=== PATIENT | male | born 1950 | race Caucasian/White ===

== ENCOUNTER → 2017-02-10 | Outpatient (CLI) | payer BC ==
--- NOTE | 2017-02-11 05:34 | HKNOTE ---
DATE OF SERVICE: 02/10/2017 MAIN COMPLAINT: Pain in the right knee. 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 He has been extremely pleased with the results of the surgery. He developed some pain in the knee about a month ago. There has not b een any history of recent infection. The patient is extremely active and he rides his bicycle [employer] 15 miles at a time possibly several times a week. He also works out in a gym several times a week. The patient underwent a left total hip replacement which was performed by me in 2006. He has absolutely no problems with the hip. He has not had any fever. His pain is aggravated by walking. He does not get any rest pain. He baez s been taking Aleve for the pain, which does help. Resting also gives him a great deal of relief. He has no numbness or tingling in the leg. He can walk 1 or 2 miles at a time without stopping. He does not use a walking aid. He does not limp. His leg lengths feel equal. He does not have a go e lift. He can clip his toenails and tie his shoelaces. SPORTING ACTIVITIES: Cycling. PAST ORTHOPEDIC HISTORY: Right knee replacement in 2007. Left hip replacement in 2006. PRIOR CORTISONE INTAKE: Topical only. ALCOHOL INTAKE: None. OTHER JOINT PROBLEMS: None. BLOOD TESTS FOR ARTHRITIS: None. PRIOR INJURIES TO HIPS OR KNEES: None. 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 PAST MEDICAL HISTORY: 1. Elevated blood sugar. 2. Atrial fibrillation. PAST SURGICAL HISTORY: As above. See attached list for an extensive surgical history. DRUG ALLERGIES: NONE. MEDICATIONS: See attached list. FAMILY HISTORY: Noncontributory. SYSTEMS REVIEW: Controlled atrial fibrillation, difficulty with urination, otherwise negative. HABITS: The patient quit smoking 22 years ago. Alcohol intake: None. [employer] ALTERATION: Dr. Dallas Saeed. PHYSICAL EXAMINATION GENERAL: The patient is an extremely youthful, fit-looking 66-year-old male. His gait is normal. He walks without a walking aid. HIPS: Both hips have full range of motion without pain. LEFT KNEE: Scar of previous knee replacement. No external sign of infection or inflammation. Full range of motion. No tenderness anywhere around the knee. Laxity of the medial and lateral collate ral ligaments. IMAGING: Plain x-rays of the left knee obtained today at the [facility] were rev iewed (3 views). These show some calcification of the distal end of the medial collateral ligament (possibly in the posterior aspect of the knee). No definite evidence of wear of the plastic insert. All components are well attached to the bone and well aligned. Imaging of the left hip obtained today at the [facility] show a total hip replace ment in place. All components are well aligned. The acetabulum is of the ASR type. No evidence of bony erosions or pseudocyst formation. DIAGNOSES: 1. Status post left total knee replacement. 2. Possible wear of the plastic insert. 3. Possible progress of laxity of the collateral ligaments. 4. Possible combination of 2 and 3. DISCUSSION: The nature of the ligamentous laxity was discussed with him. He was advised that he ma y need an exchange of the flap mobile plastic bearing to take up the slack in the ligaments. Note that his cobalt and chromium levels obtained on 03/04/2012 were exceedingly low. The chromium was less than 0.2 and the cobalt level was 0.9. These were the lowest levels I have ever seen. MANAGEMENT: The patient is being referred for repeat cobalt and chromium levels. He will call if h is knee symptoms progress. If his cobalt and chromium levels are excessively high, we will call him with the results. Dictated By: GREGORY ANGLIN/JANINA Conf#: [id number] DID#: [id number]
--- NOTE | 2017-02-11 13:04 | RADRPT ---
PROCEDURE: Right knee radiographs. CLINICAL INDICATION: Right knee pain. Postop. TECHNIQUE: Three views. Weight bearing. Frontal, lateral, and patellar view. COMPARISON: 04/19/2014. FINDINGS: There is no fracture or dislocation. The soft tissues are normal. There is a total right knee arthroplasty which appears satisfactory. There is no lytic or blastic lesion. IMPRESSION: 1. Satisfactory postoperative appearance of the right knee. RPTAT: QQ .Dung Lopez MD, MD Date Time Electronically viewed and signed by .Dung Lopez MD, on 02/11/2017 13:04 .R/
--- NOTE | 2017-02-11 13:04 | RADRPT ---
PROCEDURE: XR Left Hip and pelvis. CLINICAL INDICATION: Left hip pain. Pelvic pain. Postop. TECHNIQUE: Two views. Frontal pelvis and lateral left hip. COMPARISON: 04/19/2014. FINDINGS: There is no fracture or dislocation. The soft tissues are normal. There is a left hip total arthroplasty which appears satisfactory. There are moderate degenerative changes of the right hip with osteophytes and joint space narrowing. There is no lytic or blastic lesion. The upper pelvis is not included on the image. IMPRESSION: 1. Satisfactory postoperative appearance of the left hip. 2. Moderate degenerative changes of the right hip. RPTAT: QQ .Dugn Lopez MD, MD Date Time Electronically viewed and signed by .Dung Lopez MD, on 02/11/2017 13:03 .R/
== END | disposition home or self-care (01) ==
LOC: HKI 10:41
DX: M25.561 Pain in right knee (principal); Z96.651 Presence of right artificial knee joint; Z96.642 Presence of left artificial hip joint; I48.91 Unspecified atrial fibrillation; Z87.891 Personal history of nicotine dependence
CPT/HCPCS: 73502; 73562; G0463

== ENCOUNTER → 2017-06-25 | Outpatient (CLI) | END | disposition home or self-care (01) ==